=== PATIENT | female | born 1980 | race Caucasian/White ===

== ENCOUNTER → 2021-06-09 | Outpatient (CLI) | payer BC ==
[~2021-06-09] MED LIST: ADIPEX-P37.5 MG PO; ADVAIR INH; ALL DAY ALLERGY10 M2 PO; ASHWAGANDHA PO; CALCIUM MAG ZINC PO; DHEA50 MG PO; FERROUS GLUCON324 M1 PO; FLONASE 0.05% N16 GM; PROAIR HFA8.5 GM INH; PROTONIX40 MG PO; SINGULAIR10 MG PO; VITAMIN D3125 MCG PO; WELLBUTRIN XL150 MG PO
[2021-06-09 10:08] LABS: HEMOGLOBIN 12.5 gm/dl (12.3-15.3); RED BLOOD COUNT 4.2 M/UL (4.00-5.10); WHITE BLOOD COUNT 6.9 K/UL (4.5-11.0)
== END ==
LOC: OPSV2 09:00
PROVIDERS: Obstetrics & Gynecology
DX: Z01.818 Encounter for other preprocedural examination (principal); N81.10 Cystocele, unspecified
CPT/HCPCS: 36415; 81001; 85025; 93005

== ENCOUNTER 2021-09-12 11:02 | Emergency (ER) | payer BC ==
[~2021-09-12 11:02] MED LIST changes: +HYDROCODON-ACE1 EAC2 PO; +IPRAT-ALBUT 0.5-3 ML INH; +NAPROSYN500 MG PO; +POLYETHYLENE G500 G3 MC
== END 2021-09-12 11:26 | disposition left against medical advice (07) ==
LOC: ER1 11:02
DX: Z53.21 Procedure and treatment not carried out due to patient leaving prior to being seen by health care provider (principal)